=== PATIENT | female | born 1985 | race Caucasian/White ===

== ENCOUNTER 2019-11-08 12:51 | Emergency (ER) | payer BC, SELFPAY ==
[2019-11-08 12:57] VITALS: BP 127/88; PULSE 92; RESP 12; TEMP 36.6; O2SAT 100
--- NOTE | 2019-11-08 12:57 | ED.SKABFB ---
HPI - Skin/Abscess/Foreign Bdy General Chief complaint: Skin/Abscess/Foreign Body Stated complaint: pos insect bite Time Seen by Provider: 11/08/19 12:58 Source: patient and RN notes reviewed History of Present Illness HPI narrative: Patient is a 34-year-old female who presents the urgent care with complaints of a possible spider bite. Patient states that she noticed itchiness to the right medial ankle on Tuesday and then noticed the blister starting on Tuesday evening/Tuesday. Patient states that she has been putting Neosporin on the area and has worn a Band-Aid. Patient denies of any fever, chills, nausea, vomiting. No other acute complaints. No distress noted. Patient read the plan of care. Some parts of this dictation were generated by voice recognition software and may contain typographical and/or grammatical inaccuracies. Related Data Home Medications Medication Instructions Recorded Confirmed norgestimate-ethinyl estradiol 1 tablet PO DAILY 11/08/19 11/08/19 [Tri-Sprintec (28)] Allergies Allergy/AdvReac Type Severity Reaction Status Date / Time doxycycline Allergy Unknown Hives Verified 11/08/19 12:57 peanut Allergy Unknown Anaphylaxis Verified 11/08/19 12:57 Mushroom Allergy Unknown Unknown Uncoded 11/08/19 12:57 Pea Allergy Unknown UNK Uncoded 11/08/19 12:57 Review of Systems Review of Systems: Narrative: CONSTITUTIONAL: Denies fever, chills, or sweats. EYES: Denies visual changes, redness, or discharge. ENT: Denies rhinorrhea, congestion, sore throat, or otalgia. CARDIOVASCULAR: Denies chest pain, palpitations, or edema. RESPIRATORY: Denies cough or dyspnea. GASTROINTESTINAL: Denies abdominal pain, nausea, vomiting, or diarrhea. GENITOURINARY: Denies dysuria or hematuria. SKIN: Reports of a possible spider bite to the medial right ankle MUSCULOSKELETAL: Denies back pain, joint pain, or myalgia. NEUROLOGIC: Denies headache, numbness, or weakness. All other systems reviewed are negative, except as documented in HPI. [facility] Social History Social History Smoking status: Never smoker Comments At the time of my signature, I reviewed and agree with the nursing past medical, surgical, social, and family history. There is no relevant family history pertinent to the patient complaint. Exam Narrative: Exam Narrative: GENERAL: This is a well-nourished, well-developed patient, in no apparent distress. HEAD: normocephalic, atraumatic. EYES: PERRL. Sclera clear/white. Vision is grossly intact. EARS: External ears normal NOSE: External nose normal with no obvious nasal discharge, nares without redness, no rhinorrhea. THROAT: Mucous membranes moist SKIN: Bullous draining blister measuring 0.5 cm to the medial right ankle with very mild surrounding erythema. Warm, intact with no suspicious lesions or rash, good texture and turgor. NEURO: awake, alert, and oriented to person, place and time. There were no obvious focal neurologic abnormalities. EXTREMITIES: No clubbing, cyanosis, or edema. Course Vital Signs Vital signs: Vital Signs Temperature 97.8 F 11/08/19 12:57 Pulse Rate 92 11/08/19 12:57 Respiratory Rate 12 11/08/19 12:57 Blood Pressure 127/88 11/08/19 12:57 Pulse Oximetry 100 11/08/19 12:57 Temperature 97.8 F 11/08/19 12:57 Pulse Rate 92 11/08/19 12:57 Respiratory Rate 12 11/08/19 12:57 Blood Pressure 127/88 11/08/19 12:57 Pulse Oximetry 100 11/08/19 12:57 Reviewed MDM - Skin/Abscess/Foreign Bdy MDM Narrative Medical decision making narrative: Advised the patient to clean the area with plain Dial soap and water. If you were going to cover the area with a Band-Aid, do not make it occlusive to the skin. Use prescription cream to the area 2-3 times a day, as directed. In the next 24 to 48 hours, if you notice any increase in swelling, redness, fever, nausea, vomiting?start oral antibiotic regimen as prescribed. Luis
== END 2019-11-08 13:20 | disposition home or self-care (01) ==
PROVIDERS: Emergency Provider Nurse Practitioner Family; PCP Family Medicine
DX: S90.521A Blister (nonthermal), right ankle, initial encounter (principal); X58.XXXA Exposure to other specified factors, initial encounter
CPT/HCPCS: 99213; G0463

== ENCOUNTER 2020-11-03 16:38 | Observation (INO) | payer BC, SELFPAY ==
[2020-11-03 17:02] VITALS: BP 123/75; PULSE 109
[2020-11-03 17:15] VITALS: BP 119/72; PULSE 100
[2020-11-03 17:30] VITALS: BP 117/70; PULSE 104
[2020-11-03] MEDS: ACETAMINOPHEN 500 MG TABLET 1000 MG PO (17:44)
[2020-11-03 17:45] VITALS: BP 122/71; PULSE 103
[2020-11-03 17:47] VITALS: TEMP 36.9
[2020-11-03 17:52] LABS: Add Urine Microscopic? YES; Appearance Urine Cloudy (Clear); Bacteria Urine Trace /hpf; Bilirubin Urine Negative (Negative); Blood Urine 3+ (Negative); Color Urine Yellow (Yellow); Glucose Urine UA Negative (Negative); Ketones Urine 1+ mg/dL (Negative); Leukocyte Esterase Ur Trace LEU/UL (Negative); Mucus Urine Few /lpf; Nitrate Urine Negative (Negative); Protein Urine 1+ mg/dL (Negative); RBC Urine >75 /hpf (0-2); Specific Grav Ur 1.019 (1.001-1.035); Squamous Epithelial Cell Urine Moderate /hpf (Few); Urobilinogen Urine Negative mg/dL (<2.0)
[2020-11-03 18:11] VITALS: BMI 33.0
--- NOTE | 2020-11-28 11:16 | P.PNOB_ITS ---
OB - Triage/Final Diagnosis Visit Information Comments/Additional reasons for admission: I have assessed the risk for this patient, Briana Pardo, and determined that she would benefit from observation care. Evaluation Laboratory results: Laboratory Tests 11/03/20 17:38 Urine Color Yellow Urine Appearance Cloudy H Urine pH 6.0 Ur Specific [place] 1.019 Urine Protein 1+ H Urine Glucose (UA) Negative Urine Ketones 1+ H Ur Blood (Man) 3+ H Urine Nitrate Negative Urine Bilirubin Negative Urine Urobilinogen Negative Leukocyte Esterase Rfl Trace H Urine RBC >75 H Urine WBC 4-6 H Ur Squamous Epith Cells Moderate H Urine Bacteria Trace Urine Mucus Few H Final Diagnosis (1) Back pain affecting : Code(s): O99.891 - Other specified diseases and conditions complicating ; M54.9 - Dorsalgia, unspecified Status: Acute
== END 2020-11-03 18:31 | disposition home or self-care (01) ==
PROVIDERS: Admitting Provider Obstetrics & Gynecology; PCP Family Medicine; Visit Provider Student in an Organized Health Care Education/Training Program
DX: O99.891 Other specified diseases and conditions complicating pregnancy (principal); M54.9 Dorsalgia, unspecified; Z3A.00 Weeks of gestation of pregnancy not specified
CPT/HCPCS: 81001; 87086; 87088; A9270; G0378; G0379

== ENCOUNTER → 2020-11-10 09:14 | Outpatient (CLI) | payer BC, SELFPAY ==
[2020-11-10 19:01] LABS: SARS-CoV-2 RNA PCR Negative
== END ==
PROVIDERS: PCP Family Medicine; Visit Provider Obstetrics & Gynecology
DX: Z34.93 Encounter for supervision of normal pregnancy, unspecified, third trimester (principal); R09.81 Nasal congestion; Z3A.32 32 weeks gestation of pregnancy
CPT/HCPCS: C9803; U0003; U0005

== ENCOUNTER 2020-12-16 10:25 | Outpatient (CLI) | payer BC, SELFPAY ==
[2020-12-16 10:41] LABS: Hematocrit 38.6 % (37.0-47.0); Hemoglobin 13.3 g/dL (12.0-15.0); Mean Corpuscular HGB Conc 34.5 g/dl (32-36); Mean Corpuscular Hemoglobin 30.2 pg (26-34); Mean Corpuscular Volume 87.7 fl (80-100); Mean Platelet Volume 9.9 fl (7.4-10.4); Platelet Count Result 247 k/mm3 (150-375); Red Cell Distribution Width 14.8 % (11.5-14.5); White Blood Count 8.3 K/mm3 (4.5-10.0)
[2020-12-17 08:30] LABS: Rapid Plasma Reagin Non-Reactive (NonReactive)
== END 2020-12-16 10:26 | disposition home or self-care (01) ==
PROVIDERS: PCP Family Medicine; Visit Provider Obstetrics & Gynecology
DX: Z34.93 Encounter for supervision of normal pregnancy, unspecified, third trimester (principal); Z3A.00 Weeks of gestation of pregnancy not specified
CPT/HCPCS: 36415; 85027; 86592; 86850; 86900; 86901

== ENCOUNTER 2020-12-17 08:39 | Inpatient (IN) | payer BC, SELFPAY ==
--- NOTE | 2020-12-16 14:28 | PM.IMHP ---
H&P: HPI History of Present Illness Date/Time: 12/16/20 14:28 39 weeks by LMP 03/18/2020 EDC 12/23/2020 Consistent with 7 week ultrasound. Patient admitted for elective repeat ceserean section. She has had one previous . Has been counseled regarding trial of labor versus repeat and opts for repeat . PNC uncomplicated. Chief Complaint: Elective repeat ceserean section. Review of Systems Review of Systems: All systems reviewed & are unremarkable except as noted in HPI and below Constitutional: Constitutional: Reports no additional constitutional complaints and Denies headache(s) Eyes: Eyes: Denies spots in vision ENT: Reports system reviewed and no additional complaints, except as documented and Denies headache(s) Cardiovascular: Cardiovascular: Denies chest pain and Denies dyspnea Respiratory: Respiratory: Denies dyspnea Gastrointestinal: Gastrointestinal: Reports no additional gastrointestinal complaints Genitourinary: Genitourinary: Reports amenorrhea Musculoskeletal: Musculoskeletal: Reports no additional musculoskeletal complaints Integumentary/Breasts: Skin/Breast: Denies breast mass and Denies rash Neurologic: Denies headache(s) Psychiatric: Psychiatric: Reports no additional psychiatric complaints [facility] Past Medical History Medical History Elevated lipids Migraines Surgical History Surgical History Previous section x1 [place] teeth removed Family History Family History Father Family history of hypercholesterolemia Grandparent Family history of hypercholesterolemia Carcinoma of colon Social History Social History Smoking status: Never smoker Alcohol intake: unknown Substance use: never Spiritual care concerns: No Meds Home Medications and Allergies Home Medications Medication Instructions Recorded Confirmed Type vits no.126-ferrous fum 1 tablet PO DAILY 05/06/20 12/03/20 History 28 mg iron-folic acid 800 mcg tablet epinephrine 0.3 mg/0.3 mL 0.3 mg IM ONCE #2 ea 11/11/20 12/03/20 Rx injection, auto-injector docusate sodium [Colace] 50 mg PO DAILY 11/28/20 12/03/20 History ondansetron HCl [Zofran] 4 mg PO DAILY PRN 11/28/20 12/03/20 History Allergies Allergy/AdvReac Type Severity Reaction Status Date / Time doxycycline Allergy Unknown Hives Verified 12/12/20 14:02 peanut Allergy Unknown Anaphylaxis Verified 12/12/20 14:02 Mushroom Allergy Unknown Unknown Uncoded 12/12/20 14:02 Pea Allergy Unknown UNK Uncoded 12/12/20 14:02 Exam Const: General: no acute distress Eyes: General: appearance normal, both eyes and all related structures Resp: Effort & Inspection: normal respiratory effort Cardio: Rate: regular rate GI: Other: Gravid no fundal tenderness no right upper quadrant pain : External Female Exam: normal external appearance Speculum Exam - Cervix: normal appearance of the cervix Skin: General skin exam: no rashes or lesions noted Neuro: Cognition (Neuro): normal cognition Extrem: General: normal to inspection Psych: Mental Status: mental status grossly normal Assessment and Plan Assessment and plan (1) Previous section: Code(s): Z98.891 - History of uterine scar from previous surgery Status: Acute Assessment and Plan: Will proceed with repeat elective ceserean section on 12/17/20.
[2020-12-17] VITALS (44 sets, daily range): BP systolic 87–118; BP diastolic 48–83; PULSE 58–117; RESP 15–18; TEMP 36.1–36.8; O2SAT 95–100; BMI 34.4
--- NOTE | 2020-12-17 07:43 | WPDHPUPDATE1 ---
History and Physical Update Update Date/Time: 12/17/20 07:43 History and Physical has been reviewed, including an updated exam of the patient. There are NO changes in the patient's condition. Risks, benefits, and alternatives have been discussed and questions answered. Patient agrees to proceed with procedure.
--- NOTE | 2020-12-17 08:59 | LDADM ---
This patient, Briana Pardo, was admitted to Labor/Delivery/Recovery 120 on 12/17/20 at 08:39. Plans for labor, pain management and were discussed with patient. Patient/family oriented to hospital policies and general routines including ID bracelet, bed and alarms, visiting hours, pain management, procedures, bathroom and other care routines, personal items, smoking policy, room service/diet and guest tray routines, security routines, and visiting hours. Patient/Family are encouraged to report perceived risks to care and to ask questions if they do not understand what they are told or what they should do. See OBIX for further documentation.
[2020-12-17] MEDS: LACTATED RINGERS 1,000 ML 125 ML IV CONT (09:25)
--- NOTE | 2020-12-17 09:52 | WPDHPUPDATE1 ---
History and Physical Update Update Date/Time: 12/17/20 09:52 History and Physical has been reviewed, including an updated exam of the patient. There are NO changes in the patient's condition. Risks, benefits, and alternatives have been discussed and questions answered. Patient agrees to proceed with procedure.
--- NOTE | 2020-12-17 10:09 | P.PNAN_ITS ---
Anes - Initial Pre Proc Eval Procedure: Operation Date: 12/17/20 12:00 Proposed Procedures p Repeat Section - Jakob Valiente MD Date/Time: 12/17/20 10:09 Surgeon: Jakob Valiente MD Pre Op Diagnosis: C Section Patient Data Age: 35 Gender: F Height: 1.63 m Weight: 91 kg Last Vital Signs Temp 36.7 C 12/17/20 09:31 Pulse 117 H 12/17/20 09:02 Resp 16 12/17/20 09:31 BP 112/76 12/17/20 09:02 Allergies Allergy/AdvReac Type Severity Reaction Status Date / Time doxycycline Allergy Unknown Hives Verified 12/12/20 14:02 peanut Allergy Unknown Anaphylaxis Verified 12/12/20 14:02 Mushroom Allergy Unknown Unknown Uncoded 12/12/20 14:02 Pea Allergy Unknown UNK Uncoded 12/12/20 14:02 Home Medications Medication Instructions Recorded Confirmed Type vits no.126-ferrous fum 1 tablet PO DAILY 05/06/20 12/17/20 History 28 mg iron-folic acid 800 mcg tablet epinephrine 0.3 mg/0.3 mL 0.3 mg IM ONCE #2 ea 11/11/20 12/17/20 Rx injection, auto-injector docusate sodium [Colace] 50 mg PO DAILY 11/28/20 12/17/20 History ondansetron HCl [Zofran] 4 mg PO DAILY PRN 11/28/20 12/17/20 History Patient hx anesthesia problems: none Family hx anesthesia problems: none Results Review: All pre-operative results and documents have been reviewed as part of the pre-operative evaluation. [facility] Past Medical History Medical History Elevated lipids Migraines Surgical History Surgical History Previous section x1 [place] teeth removed Family History Family History Father Family history of hypercholesterolemia Grandparent Family history of hypercholesterolemia Carcinoma of colon Social History Social History Smoking status: Never smoker Alcohol intake: unknown Substance use: never Spiritual care concerns: No Anes - Eval Final PreProcedure Day of Procedure 12/17/20 10:09 Patient weight: obese Heart: regular rate and rhythm Lungs: clear to auscultation and normal air movement Airway: Mallampati scale class II Neurological: alert and oriented Last oral intake: >/= 8 hours ASA classification: II Emergent: no Anesthetic plan: proceed Anesthesia type and monitoring: regional spinal and standard monitoring Results Review: All pre-operative results and documents have been reviewed as part of the pre-operative evaluation. Informed Consent: The patient's anesthetic plan and its attendant risks and benefits were discussed with the patient/family/POA. Questions were solicited a nd answers provided to the satisfaction of the patient/family/POA.
[2020-12-17] MEDS: ceFAZolin 2 GM/D5W 50 ML 2 GM/50 ML BAG IVPB (10:10)
[2020-12-17] MEDS: KETOROLAC 30 MG/ML VIAL (*BKC) IV PUSH ×2 (10:30→20:02)
--- NOTE | 2020-12-17 11:29 | P.OP_ITS ---
Procedure Note - Detailed Date of Procedure 12/17/20 Pre-op Diagnosis C Section, Elective repeat Post-op Diagnosis same Procedure Performed Repeat low transverse ceserean section. Surgeon Jakob Valiente MD Anesthesia spinal Indications Elective repeat ceserean section. Findings Female infant, 6lb 15oz, apgars 8,9 normal uterus and fallopian tubes and ovaries. The lower uterine segment was noted to be thin, intact. Description of Procedure After informed consent, risks and benefits of the procedure was discussed with the patient. The patient was taken to the operating room where adequate spinal anesthesia was administered. She was then prepped and draped in the usual sterile fashion. A Pfannenstiel skin incision was made along the prior Pfannesteihl scar, with a scalpel and carried through to the underlying layer of fascia. The fascia was then nicked in the midline, extending bilaterally. The fascia was dissected off the rectus muscles bluntly and sharply, superiorly and inferiorly. The rectus m uscles were in the midline, and peritoneum was identified and entered bluntly. The pelvic organs were visualized. The bladder blade was then inserted. The vesicouterine peritoneum was identified and entered sharply with Metzenbaum scissors and extended bilaterally and then the bladder flap was created digitally. The low transverse uterine incision was then made with the scalpel and extended with bilateral index fingers in a crescent-shaped fashion. The head was delivered and the rest of the was delivered. The nose and mouth suctioned. The cord was clamped twice and cut. The was then handed off to the awaiting nursery staff. The placenta was then delivered manually. The uterine cavity was sponge curetted. The uterus was then exteriorized. The uterine incision was then closed with 0 vicryl in a running locked fashion. A second layer of 0 vicryl was used in an imbricating fashion for hemostasis. The posterior cul de sac was irrigated. The uterus was then returned to the abdomen. Bilateral gutters were cleared off all clots and debris and irrigated. The uterine incision was noted to be hemostatic. Interceed placed on uterine incision and vertically on front of uterus. The muscle bellies were inspected and noted to be hemostatic. The subfascial layer was noted to be hemostatic, and the fascia was closed with 0 Vicryl in a running fashion. The subcutaneous layer was then closed with 3-0 Vicryl in a subcutaneous fashion. The skin was closed with dissolveable fanny. Skin dermabond applied at incision. All instruments, needle, and lap counts were correct x3. The patient was taken to the recovery room in stable condition. Estimated Blood Loss 335 IV Fluids 800 Drains No Packing No Pathology none sent Complications No immediate complications Condition stable Disposition floor
[2020-12-17] MEDS: OXYTOCIN 30 UNITS/NS 500 ML 30 UNITS/500 ML BAG 125 UNITS IV CONT (11:53)
--- NOTE | 2020-12-17 15:13 | OBPPTRN ---
[id number] Patient transferred to post room #284 via stretcher. Support person present. Oriented to unit, room, information board, rooming in, admission packet and security measures. Patient verbalizes understanding.
[2020-12-17] MEDS: DEXTROSE 5%/0.45% SOD CHL 1,000 ML 125 ML IV CONT (17:49)
[2020-12-18 04:00] VITALS: BP 104/68; PULSE 80; RESP 16; TEMP 36.5; O2SAT 99
[2020-12-18] MEDS: HYDROcodone/acetaminophen (*CRX) 5-325 MG TABLET 1 TAB PO ×6 (04:08→22:41)
[2020-12-18] MEDS: IBUPROFEN 600 MG TABLET PO ×4 (04:09→22:41)
[2020-12-18 05:25] LABS: Basophils Percent Auto 0.2 % (0.2-1.2); Eosinophils Absolute Auto 0.1 K/mm3 (0-0.3); Eosinophils Percent Auto 0.5 % (0-4.4); Hematocrit 38.4 % (37.0-47.0); Immature Granulocyte Absolute 0.11 K/mm3 (0.00-0.031); Immature Granulocyte Percent A 0.6 % (0-0.5); Immature Platelet Fraction Pct 4.9 % (0.9-11.2); Lymphocytes Absolute Auto 3.13 K/mm3 (0.9-3.2); Mean Corpuscular HGB Conc 33.9 g/dl (32-36); Mean Corpuscular Hemoglobin 30.2 pg (26-34); Mean Corpuscular Volume 89.3 fl (80-100); Monocytes Absolute Auto 1.2 K/mm3 (0.1-0.6); Neutrophils Absolute Auto 12.8 K/mm3 (1.3-6.7); Neutrophils Percent Auto 73.7 % (45.5-73.1); Platelet Count Result 250 k/mm3 (150-375); Red Cell Distribution Width 15.1 % (11.5-14.5); White Blood Count 17.4 K/mm3 (4.5-10.0)
--- NOTE | 2020-12-18 07:00 | PC.NURSE ---
PT introductions made and plan of care discussed per post op c section, pain management, breast feeding, daily care activities. PT and spouse both recipients of such instructions and no barriers to learning identified at this time. During this shift education and instruction will be provided by one to one discussion, mom baby care guide and demonstrations. PT verbalized understanding of such care.
[2020-12-18 09:30] VITALS: BP 106/72; PULSE 83; RESP 18; TEMP 36.5; O2SAT 98
[2020-12-18] MEDS: MULTIVIT/MIN/PREN/FOL AC/IRON TABLET 1 TAB PO (09:30)
[2020-12-18] MEDS: SIMETHICONE 80 MG TAB.CHEW PO ×3 (09:30→16:28)
--- NOTE | 2020-12-18 09:45 | PC.NURSE ---
Mother called out for assist with feeding, reporting was eager to feed during the night. Mother had some difficulties with latching and has bruising to left areola and blistering to right nipple. Nipple care reviewed of lanolin after feedings, warm compresses as needed, gel pads provided and reviewed care and cleaning. is able to freely thrust tongue past gum ridge and flange both lips, does keep her tongue rolled up. Reviewed feeding cues, frequencies, duration of feedings, feeding elimination flow sheet, and signs of adequate intake. Demonstrated stimulation techniques to wake infant for feeding. Assisted with infant to breast. Reviewed positioning/alignment in cross cradle, holding breast in ?U? hold and guided asymmetrical latch on. Reviewed rational for each. Infant able to latch correctly after several attempts. Infant nursed eagerly with steady draws and occasional/frequent swallowing noted, some pausing noted. Reviewed signs of a correct latch, effective nursing and suck swallow ratio. Suggested mother stimulate while feeding to increase stimulate, increase intake and to assist with maintaining deep latch. Infant would slip to shallow latch causing tenderness. Demonstrated how to adjust latch more deeply while feeding if needed. Mother reports she can feel the difference in latch with no/less tenderness. Instructed mother to call out for RN assistance if she is unable to latch infant for feeding or she has discomfort with nursing. Instructed feeding should be initiated three hours from start of last feeding or if feeding cues are noted before. Mother voiced understanding of information shared.
--- NOTE | 2020-12-18 12:55 | PC.NURSE ---
Mother called out for assist with feeding, reporting she was able to switch to other breast last feeding. Reviewed infant feeding cues, frequencies, duration of feedings, feeding elimination flow sheet, and signs of adequate intake. Demonstrated stimulation techniques to wake for feeding. Assisted with infant to breast. Reviewed positioning/alignment in cross cradle, holding breast in ?U? hold and guided asymmetrical latch on. Reviewed rational for each. Infant able to latch correctly after several attempts. nursed eagerly with steady draws and occasional/frequent swallowing noted, some pausing noted. Reviewed signs of a correct latch, effective nursing and suck swallow ratio. Suggested mother stimulate while feeding to increase stimulate, increase intake and to assist with maintaining deep latch. Infant would slip to shallow latch causing tenderness. Demonstrated how to adjust latch more deeply while feeding if needed. Mother reports she can feel the difference in latch with no/less tenderness. Instructed mother to call out for RN assistance if she is unable to latch for feeding or she has discomfort with nursing. Instructed feeding should be initiated three hours from start of last feeding or if feeding cues are noted before. Mother voiced understanding of information shared.
--- NOTE | 2020-12-18 14:58 | WPDANLDPN2 ---
Anes-Prog Note L&D Date/Time: 12/18/20 14:58 Comfortable throughout: section Neuraxial method: spinal Epidural/Spinal procedure site: clean & non-tender Neuro status: Neuro function grossly intact. Cardiovascular status: normal Respiratory status: normal Airway patency: baseline Mental status: baseline Post-Op hydration status: normal Vital Signs: Last Vital Signs Temp 36.5 C 12/18/20 04:00 Pulse 80 12/18/20 04:00 Resp 16 12/18/20 04:00 BP 104/68 12/18/20 04:00 Pulse Ox 99 12/18/20 04:00 Pain score (VAS): 03/02 I/O: Intake & Output 12/17/20 12/18/20 12/18/20 23:59 07:59 15:59 Intake Total 200 1000 240 Output Total 900 1300 400 Balance -700 -300 -160 Post-procedural complaints: none Patient feedback: Patient satisfied with anesthetic care.
--- NOTE | 2020-12-18 14:58 | WPDANLDNPN2 ---
Anes-Prog Note L&D-Neuraxial Date/Time: 12/18/20 14:58 Neuraxial medications: intrathecal PF morphine Opiod-related complaints: none Patient feedback: Patient satisfied with post-operative pain management.
[2020-12-18 19:40] VITALS: BP 113/71; PULSE 78; RESP 16; TEMP 36.8; O2SAT 98
[2020-12-19] MEDS: HYDROcodone/acetaminophen (*CRX) 5-325 MG TABLET 1 TAB PO ×4 (01:46→10:55)
[2020-12-19] MEDS: IBUPROFEN 600 MG TABLET PO ×2 (04:52→10:54)
[2020-12-19 07:55] VITALS: BP 109/70; PULSE 80; RESP 18; TEMP 37.4; O2SAT 99
[2020-12-19] MEDS: MULTIVIT/MIN/PREN/FOL AC/IRON TABLET 1 TAB PO (08:09)
[2020-12-19 09:20] VITALS: TEMP 37.2
--- NOTE | 2020-12-19 09:32 | PM.GYNPNOP ---
[employer]OWER [employer] - A/P Assessment and plan (1) Previous section: Code(s): Z98.891 - History of uterine scar from previous surgery Status: Acute Assessment and Plan: Doing well. Request discharge. Discharge instructions provided. Postoperative Procedures: Procedures Operation Date: 12/17/20 12:00 Actual Procedure Side Surgeon p Repeat Section Jakob Valiente MD Time Spent With Patient Time: Total time spent is greater than 50% in coordination of care (as documented) at patient's floor/unit and/or counseling patient: Time with patient: less than 15 minutes [employer]OWER [employer]- PN:Subj Post-Op Subjective Date/time seen: 12/19/20 09:32 She is doing well. Ambulating without problem. Breast and supplementing feedings. Adequate pain control. Decrease lochia. Positive flatus. Tolerating regular food. Exam Const: General: comfortable and no acute distress Resp: Effort & Inspection: normal respiratory effort Cardio: Rate: regular rate GI: Other: fundus -3umb firm nontender incision intact, no drainage, mild bruising Extrem: Other: nontender, no calf tenderness Psych: Mental Status: mental status grossly normal Affect: normal affect [employer] - PN: Obj Data Vital Signs Vital Signs: Vital Signs - 24 hr 12/18/20 19:40 12/19/20 07:55 12/19/20 09:20 Temperature 98.2 F 99.4 F 99.0 F Pulse Rate 78 80 Respiratory Rate 16 18 Blood Pressure 113/71 109/70 Pulse Oximetry 98 99 Intake/Output Intake/Output: Intake & Output 12/16/20 12/17/20 12/18/20 12/19/20 23:59 23:59 23:59 23:59 Intake Total 2150 1240 Output Total 1380 1700 Balance 770 -460 Meds/Results Medications: Active Medications Generic Name Dose Route Start Last Admin Trade Name Freq PRN Reason Stop Dose Admin Acetaminophen 650 mg 12/17/20 11:17 Acetaminophen 325 Mg Tablet PO Q6H PRN Mild Pain (1-3) Hydrocodone Bitart/Acetaminophen 1 tab 12/17/20 11:17 12/19/20 08:09 Hydrocodone/Acetaminophen (*Crx) 5-325 Mg Tablet PO 1 tab Q3H PRN Administration Moderate Pain (4-6) Hydrocodone Bitart/Acetaminophen 1 tab 12/17/20 11:17 Hydrocodone/Acetaminophen (*Crx) 10-325 Mg Tablet PO Q3H PRN Pain Rated 7-10 Diphenhydramine HCl 25 mg 12/17/20 10:10 Diphenhydramine Hcl Inj 50 Mg/Ml Vial IV PUSH Q4H PRN Pruritis/Nausea Emollient Ointment 1 applic 12/17/20 11:17 Lanolin (Lansinoh) 7.5 Gm Cream TOPICAL PRN PRN Sore Nipples Ibuprofen 600 mg 12/17/20 11:17 12/19/20 04:52 Ibuprofen 600 Mg Tablet PO 600 mg Q6H PRN Administration Cramping Ketorolac Tromethamine 30 mg 12/17/20 11:17 12/17/20 20:02 Ketorolac 30 Mg/Ml Vial (*Bkc) IV PUSH 30 mg Q6H PRN Administration Pain Rated 4-6 Morphine Sulfate 2 mg 12/17/20 10:10 Morphine Sulfate (*Crx) 2 Mg/Ml Inj IV PUSH Q5M PRN Pain Naloxone HCl 0.1 mg 12/17/20 11:17 Naloxone Hcl 0.4 Mg/Ml Vial IV PUSH Q2M PRN Opiate Reversal Ondansetron HCl 4 mg 12/17/20 11:17 Ondansetron Inj 4 Mg/2 Ml Vial IV PUSH Q6H PRN Nausea Vit/Calcium/Iron/Folic Ac 1 tab 12/18/20 09:00 12/19/20 08:09 Multivit/Min/Pren/Fol Ac/Iron Tablet PO 1 tab DAILY KHUSHI Administration Simethicone 80 mg 12/17/20 11:17 12/18/20 16:28 Simethicone 80 Mg Tab.Chew PO 80 mg Q2H PRN Administration Gas Zolpidem Tartrate 5 mg 12/17/20 11:17 Zolpidem Tartrate (*Crx) 5 Mg Tablet PO HS PRN Insomnia Labs CBC & Chem 7: 12/18/20 04:32
[2020-12-19] MEDS: DOCUSATE SODIUM 100 MG CAPSULE (10:54)
--- NOTE | 2020-12-19 11:15 | PC.NURSE ---
Mother called out for assist with feeding. Mother reports infant is sleepy has lost 9% weight. Mother began supplementing after feedings and pumping using her pump from home. Mother states infant makes eager attempts to latch with good bursts of nursing then begins to slow and fall asleep. Nipple care reviewed of lanolin after feedings, warm compresses as needed, gel pads provided and reviewed care and cleaning. Reviewed infant feeding cues, frequencies, duration of feedings, feeding elimination flow sheet, and signs of adequate intake. Demonstrated stimulation techniques to wake infant for feeding. Assisted with infant to breast. Reviewed positioning/alignment in cross cradle, holding breast in ?U? hold and guided asymmetrical latch on. Reviewed rational for each. Infant was able/unable to latch correctly. Once latched infant made a weak effort to suckle with a few short draws and then fell asleep with nipple in mouth. Infant stimulated to wake with to return to breast with same results. Discussed nipple shield use and how shield may assist with latch. Mother is willing to attempt using shield. Initiated nipple shield due to sore nipples and is unable to maintain latch due to sleepiness. Reviewed nipple shield precautions and possible complications. Instructions given on application and cleaning of shield. Patient able to return demonstration on proper application of shield. Discussed the need for regular pumping if continues to nurse with the shield. Patient verbalizes understanding. With shield in place, able to latch correctly within a few attempts. Infant nursed eagerly with steady draws and occasional swallowing noted for bursts followed with long pausing. Reviewed signs of a correct latch, effective nursing and suck swallow ratio. Infant was able to maintain latch without discomfort to mother. Suggested mother stimulate while feeding to increase stimulate, increase intake and to assist with maintaining deep latch. Demonstrated how to adjust latch more deeply while feeding if needed. Small amount of formula to nipple shield and into infant's mouth to entice feeding with short bursts of suckling. Discussed the difference of effective vs ineffective feeding. Reviewed infant is latching with good burst of suckling, he is not feeding consistently with adequate milk transfer at this time and continues to need to be supplement after . Feeding options discussed, Feeding Plan is for mother to put infant to breast each feeding for up to 15 minutes, then pace feed supplement 20 mls and pump for 10-15 minutes. Parents are comfortable with supplementation and pumping. If begins to nurse effectively with long draws and frequent swallowing noted, infant may decrease supplementation and discontinue pumping. Suggested mother have LC weld inspector observe feeding before discontinuing supplementation. Discussed increasing supplementation as infant requires to satisfactions. Reviewed paced feeding and suggested to stop when infant is satisfied, as long as is having required output. With increased supplementation infant may not want to feed for 4 hours. Mother will continue to pump on infant feeding schedule and will increase session to 20 minutes if pumping every 4 hours. Instructed mother to call out for RN assistance if she is unable to latch infant for feeding or she has discomfort with nursing. Instructed feeding should be initiated three hours from start of last feeding or if feeding cues are noted before. Mother voiced understanding of information shared. Mother is planning on discharge later this day. Mother is able to independently latch infant with appropriate positioning/alignment using nipple shield. She denies any nipple discomfort, is feeding as required and waking infant to feed if needed. Infant has few effective feedings followed with supplementation in the past 24 hours, and is curre
[2020-12-22 10:29] VITALS: BP 143/85; PULSE 94; RESP 20; TEMP 36.9; O2SAT 94
--- NOTE | 2021-01-20 08:34 | PM.OBDSVD ---
DS: Admitting Diagnosis Discharge Date 12/19/20 Admitting Diagnosis Elective repeat ceserean section DS: Discharge Diagnosis Discharge Diagnosis (1) Previous section: Code(s): Z98.891 - History of uterine scar from previous surgery Status: Acute OB - DS: Summary Hospital Course Hospital Course: Patient admitted for elective repeat ceserean section on 12/17/20. She underwent an uncomplicated repeat ceserean section. She did well postoperatively. She was ambulating and had adequate pain control and tolerating regular diet on post op day 1. She had flatus on post op day 2. She was discharged to home on 12/19/20. OB Procedures : Ultrasound OB Procedures Intrapartum: low cervical, transverse OB Procedures: : None Peripartum Data Infant Delivery Method: Section Procedures: Procedures Operation Date: 12/17/20 12:00 Actual Procedure Side Surgeon p Repeat Section Jakob Valiente MD complications: none Status at Discharge Functional status at discharge: independent ambulation Time Spent with Patient Time attestation: Total time spent providing and/or coordinating discharge services: Exam Const: General: cooperative Orientation/consciousness: oriented to person, oriented to place and oriented to time HENMT: General nose exam: Normal external nose present Eyes: General: appearance normal, both eyes and all related structures Resp: Effort & Inspection: normal respiratory effort GI: Inspection: normal to inspection Other: incision healing well Skin: General skin exam: normal color Neuro: General: oriented to person, oriented to place and oriented to time Extrem: General: normal to inspection and no calf tenderness Psych: Appearance: grossly normal Mental Status: mental status grossly normal Discharge Plan Discharge Attending physician on discharge: Jakob Valiente Consulting providers: Em Trent ; Flavio Cason Discharging Clinician: Jakob Valiente Anticipated Discharge Date/Time: 12/19/20 09:28 Patient Disposition: Home, Self-Care Activity: may shower, no straining, may drive after 2 weeks and pelvic rest Diet: regular Discharge Instructions: Pelvic rest for 4-6 weeks. May take over the counter Ibuprofen or Tylenol for pain. Call if saturating more than a pad an hour, leg redness, pain and swelling, temperature>100.4 or drainage from incision. No strenuous activity. Education: Mom and Baby Guide Given to: Mother Follow-Up: Call your delivering provider's office for an appointment to be seen in: 2 Weeks Mom and baby should come to the [facility] for the follow-up appointment. Appointment Date/Time: December 22, 2020 at 10:00 am What to expect at your follow-up visit: Physical Assessment Call [phone] if you are unable to keep your appointment time. BREAST CARE: * Wear a snug supportive bra. * For engorgement discomfort: Breast Feeding: * Apply warm moist washcloths * Express milk as needed to relieve engorgement * Wear loose clothing * For sore nipples: * Identify correct latch-on * Apply warm moist washcloths before and after nursing * Air dry nipples after nursing * May apply Lansinoh cream to nipples ABDOMINAL INCISION: * Allow incision to air dry * Do NOT use lotions for powders on your incision * When showering, allow soap and water to run over the incision, but do not wash incision PERINEAL CARE: * Until bleeding stops, use your leanne bottle after urinating * Change your pad frequently throughout the day * No tub baths until seen by your physician - You may shower ACTIVITY: * Rest as much as possible. * Do not exercise or lift anything heavier than your baby (such as laundry or other children.) * Avoid stairs or driving as much as possible. * Do not put anything into the vagina. No do
== END 2020-12-19 12:53 | disposition home or self-care (01) | DRG 788 ==
LOC: ANHLDR 08:44 → ANHOB2 13:47
PROVIDERS: Admitting Provider Obstetrics & Gynecology; PCP Family Medicine; Visit Provider Obstetrics & Gynecology
PROC: 10D00Z1 Extraction of Products of Conception, Low, Open Approach (ICD-10-PCS; CPT 59514; principal; 2020-12-17 12:00)
DX: O34.211 Maternal care for low transverse scar from previous cesarean delivery (principal); O99.824 Streptococcus B carrier state complicating childbirth; O69.82X0 Labor and delivery complicated by other cord entanglement, without compression, not applicable or unspecified; Z3A.39 39 weeks gestation of pregnancy; Z37.0 Single live birth
CPT/HCPCS: 36415; 85025; 85027; 85055; 86592; 86850; 86900; 86901; A9270; J0131; J0690; J1885; J2274; J2590; J7120

== ENCOUNTER 2020-12-25 14:28 | Outpatient (CLI) | payer BC, SELFPAY ==
[2020-12-25 14:44] VITALS: BP 125/86; PULSE 95
[2020-12-25 15:00] VITALS: BP 118/81; PULSE 88; TEMP 37.2
--- NOTE | 2020-12-25 15:20 | PC.NURSE ---
Patient requested help with some questions. Infant has been nursing with a nipple shield since delivery and has not been an aggressive feeder. Mother started pumping on day of discharge but was not fitted for flange size before she left. She has a history of good milk supply with her first baby and no changes during this to suggest a risk for low milk supply. Patient states that pumping has been pinchy and uncomfortable. Suggested patient try a 27mm flange instead of a 24mm flange. Patient states she has some 27mm arriving in the mail today. Advised patient that pumping should not be painful and that a change in flange size and using a small amount of lanolin prior to pumping can help. Patient was also advised to increase suction for better milk removal once she resolves the flange issue. Patient given a hand expression pamphlet and discussed use of warm moist heat, hand expression and breast massage prior to pumping. Patient feels that her breast are firm but she only pumps a total of 1 ounce between both breasts at each pumping session. Patient had been massaging any plugged ducts during pumping and will continue to do so along with breast massage. Patient has been pumping regularly for 15 minutes after each attempt. Sharon Walsh's contact information given and patient encouraged to call her tomorrow morning. Patient agreeable to this and receptive to trying hand expression and flange adjustment.
[2020-12-25 15:23] VITALS: BP 125/86; PULSE 95
--- NOTE | 2020-12-25 15:27 | PC.NURSE ---
1505- called, read bp's and informed pt is c/o headache she is rating 6 on pain scale of 1-10. Order received to give 1g tylenol and zofran if pt would like it for nausea and discharge pt home. Instruct pt she can take benadryl and sudafed for headache/nausea as well. Pt denied wanting medication here, will take tylenol when she leaves to save on cost.
--- NOTE | 2020-12-25 15:29 | PC.NURSE ---
Maya RN at bedside to assist pt with and evaluate for mastitis.
== END 2020-12-25 15:40 | disposition home or self-care (01) ==
LOC: ANHOBOP 14:37 → ANHOBPP 14:37
PROVIDERS: PCP Family Medicine; Visit Provider Obstetrics & Gynecology
DX: R51.9 Headache, unspecified (principal); O13.9 Gestational [pregnancy-induced] hypertension without significant proteinuria, unspecified trimester; Z3A.00 Weeks of gestation of pregnancy not specified
CPT/HCPCS: 99199